=== PATIENT | female | born 1960 | race Caucasian/White ===

== ENCOUNTER 2016-07-30 08:15 | Emergency (ER) | payer OTHER ==
[~2016-07-30] VITALS: Ht 157.5 cm; Wt 59.0 kg
[~2016-07-30 08:15] MED LIST: ALBU8HFA4; BALS750C PO; DIAZ2TAB3 PO; ESCI10TA PO; ESTRADIOL PATCH; MELATONIN PO; MULT-67 PO; NORETHINDRONE PO; OMEGA-3 PO; VITAMIN D PO; [UNRECOGNIZED DRUG - CODE] PO
--- NOTE | 2016-07-30 08:41 | NUR ---
PT WAS EVALUATED BY DR CHOUDHURY. PT WAS D/C TO HOME. D/C INSTRUCTIONS GIVEN TO THE PT.
[2016-07-30 08:44] VITALS: BP 121/69
[2016-07-30] MEDS ORDERED: NEOMY/BACITRA/POLYMYXIN B OINT UD PACKET TP ONE ×2 (08:45)
== END 2016-07-30 08:45 | disposition home or self-care (01) ==
LOC: ER 08:15
DX: S61.411D Laceration without foreign body of right hand, subsequent encounter (principal); F32.9 Major depressive disorder, single episode, unspecified; W54.0XXD Bitten by dog, subsequent encounter; Y92.89 Other specified places as the place of occurrence of the external cause; Y99.8 Other external cause status
CPT/HCPCS: 99282; A4663

== ENCOUNTER 2017-02-28 13:52 | Emergency (ER) | payer OTHER ==
[~2017-02-28] VITALS: Ht 162.6 cm; Wt 62.6 kg
[~2017-02-28 13:52] MED LIST changes: +FAMC500T18 PO; -[UNRECOGNIZED DRUG - CODE] PO
[2017-02-28 14:53] LABS: BASOPHILS # (AUTO) 0.1 K/uL (0.0-8.0); BASOPHILS % (AUTO) 1.1 % (0.0-2.0); EOSINOPHILS % (AUTO) 0.3 % (0.0-7.0); HEMATOCRIT 43.7 % (37-47); LYMPHOCYTES # (AUTO) 1.1 K/UL (0.8-4.8); LYMPHOCYTES % (AUTO) 20.2 % (20.5-51.5); MEAN CORPUSCULAR HEMOGLOBIN 34.7 UUG (27.0-31.0); MEAN CORPUSCULAR HGB CONC 34 g/dL (32.0-37.0); MEAN CORPUSCULAR VOLUME 100.8 FL (81.0-99.0); MONOCYTES # (AUTO) 0.6 K/UL (0.1-1.30); MONOCYTES % (AUTO) 12.4 % (0.0-11.0); NEUTROPHILS # (AUTO) 3.4 K/UL (1.8-8.9); PLATELET COUNT (AUTO) 326 K/UL (150-450); RED BLOOD CELL COUNT(AUTO) 4.34 MIL/UL (4.2-5.4); WHITE BLOOD COUNT (AUTO) 5.2 K/UL (4.0-11.2)
[2017-02-28 14:54] LABS: *AMPHETAMINE, URINE NEGATIVE (NEGATIVE); *BARBITURATE, URINE NEGATIVE (NEGATIVE); *CANNABINOID, URINE NEGATIVE (NEGATIVE); *COCCAINE, URINE NEGATIVE (NEGATIVE); *OPIATE, URINE NEGATIVE (NEGATIVE); *PHENCYCLIDINE SCREEN,URINE NEGATIVE (NEGATIVE)
[2017-02-28 15:04] LABS: CARBON DIOXIDE 24 mmol/L (21-32); CHLORIDE 96 mmol/L (98-107); CREATININE 0.7 mg/dL (0.6-1.3); GLUCOSE 102 mg/dL (74-106); POTASSIUM 3.7 mmol/L (3.5-5.1); UREA NITROGEN, BLOOD 14 mg/dL (7-18)
[2017-02-28 15:13] LABS: ACETAMINOPHEN < 2.0 ug/mL (10-30); ALANINE AMINOTRANSFERASE 163 U/L (14-59); ALKALINE PHOSPHATASE 57 U/L (50-136); ASPARTATE AMINOTRANSFERASE 290 U/L (15-37); BILIRUBIN,DIRECT 0.2 mg/dL (0.0-0.2); BILIRUBIN,TOTAL 0.6 mg/dL (0.2-1.0); TOTAL PROTEIN, SERUM 7.6 g/dL (6.4-8.2)
[2017-02-28 15:18] LABS: ETHANOL 398 MG/DL (0-0)
--- NOTE | 2017-02-28 16:32 | NUR ---
MSE COMPLETED, PT D/C'D HOME. PT TO RETURN AND GO TO [facility]. PT AMBULATED W/O DIFF/TOOK ALL BELONGINGS, AND SIG OTHER TO DRIVE.
[2017-02-28 16:37] VITALS: BP 143/89
== END 2017-02-28 16:38 | disposition home or self-care (01) ==
LOC: ER 13:52
DX: F10.20 Alcohol dependence, uncomplicated (principal); F32.9 Major depressive disorder, single episode, unspecified
CPT/HCPCS: 36415; 71010; 80307; 85025; 93005; A4663; G0480; G0480-TC